=== PATIENT | male | born 1955 | race Hispanic/Latino ===

== ENCOUNTER 2017-09-16 14:00 | Outpatient (RCR) | payer BC | END 2017-09-21 | LOC: PT 14:00 | PROVIDERS: ATTEND Neurological Surgery | DX: S32.018D Other fracture of first lumbar vertebra, subsequent encounter for fracture with routine healing (principal); M62.81 Muscle weakness (generalized) ==

== ENCOUNTER 2017-10-20 10:00 | Outpatient (RCR) | payer BC | END 2017-10-22 | LOC: PT 10:00 | PROVIDERS: ATTEND Neurological Surgery | DX: S32.018D Other fracture of first lumbar vertebra, subsequent encounter for fracture with routine healing (principal) ==

== ENCOUNTER 2018-08-25 12:45 | Outpatient (RCR) | payer BC | END 2018-09-21 | LOC: PT 12:45 | PROVIDERS: ATTEND Neurological Surgery | DX: S32.018D Other fracture of first lumbar vertebra, subsequent encounter for fracture with routine healing (principal); M62.81 Muscle weakness (generalized); R26.2 Difficulty in walking, not elsewhere classified ==

== ENCOUNTER → 2019-05-17 | Outpatient (CLI) | payer BC ==
[~2019-05-17] MED LIST: IOPAMIDOL 370 MG/ML 200 ML INFUS..BTL INJ ONE; NITROGLYCERIN 0.4 MG SUBL ONE; SODIUM CHLORIDE 0.9% 100 ML ONE
[2019-05-17 08:21] LABS: BLOOD UREA NITROGEN 16 mg/dL (7-26); BUN/CREATININE RATIO 21 (6-25); CREATININE, SERUM 0.75 mg/dL (0.72-1.25); EST GLOMERULAR FILTRATION RATE > 60 ML/MIN (60-)
--- NOTE | 2019-05-18 13:24 | Diagnostic Imaging Report ---
EXAM: CORONARY CTA WITHOUT CALCIUM SCORE INDICATION: ^[id number] ^[id number] ^ANOMALOUS ORGIN OF CORONARY ARTERY COMPARISON: None. TECHNIQUE: Multi-detector CT technology was employed (64 MDCT [employer]). Minimal slice thickness was performed with retrospective gating following the intravenous administration of contrast material. The patient was premedicated with 0.4 mg sublingual nitroglycerin for coronary dilation. IV CONTRAST: 100 mL of Isovue-370 ORAL CONTRAST: None COMPLICATIONS: None RADIATION DOSE: Total DLP: 1409 mGy*cm Estimated effective dose: (DLP x 0.015 x size factor) mSv CTDIvol has been reviewed. It is below the limits set by the Radiation Protocol Committee (RPC). For optimization of anatomic evaluation, multiplanar reconstruction, maximum intensity projections, and advanced 3-D off-line postprocessing were performed on a dedicated stand-alone workstation under the direct supervision of the interpreting physician. 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 Left Main Coronary Artery: The left main is normal sized vessel that bifurcates into the LAD and circumflex. Minimal calcified plaque in the distal segment without significant stenosis. Left Anterior Descending Coronary Artery: The LAD is a normal size vessel that wraps around the apex. It gives rise to 2 acute diagonal branches. Few a scattered minimal calcified plaques throughout the LAD and diagonal branches, resulting in minimal narrowing (1-24%), without significant stenosis. Left Circumflex Coronary Artery: The LCX, which is dominant, is a normal size vessel, which arises from a common ostium from the right sinus of Valsalva, and then has a retroaortic course (benign coarse), and extends into the left AV groove to the above is small obtuse marginal and enlarged posterior descending artery. It gives rise to 1 obtuse marginal branches and a large posterior descending artery. Few scattered minimal calcified plaques throughout the LCx and acute marginal branch, resulting in minimal narrowing (1-24%), without significant stenosis. Right Coronary Artery: The RCA is a hypoplastic vessel with minimal luminal diameter of 2 mm, that arises from the right sinus of Valsalva in a common origin with the LCx. There is a complex calcified and noncalcified plaque in the proximal/mid segment, worse at the AV groove, resulting in severe stenosis (70-99%). It gives off a few small atrial and right ventricular branches. CARDIAC MORPHOLOGY AND FUNCTION: The right and left atria and ventricles are morphologically normal. LVEF: 75%, LV end diastolic volume: 109.5 cc LV end systolic volume: 27.3 cc LV stroke volume: 82.2 cc LIMITED CHEST: Limited views of the visualized chest show no abnormality within chest wall and mediastinum. No mediastinal lymphadenopathy. The visualized lungs are clear. The visualized portions of the ascending and descending thoracic aorta are of normal size. LIMITED ABDOMEN: Limited images of the upper abdomen reveal no abnormalities of the visualized organs. BONES: No acute osseous abnormalities. IMPRESSION: 1. 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 2. 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 3. Minimal calcified plaques throughout the LCx and LAD resulting in minimal narrowing (1-24%). CAD-NITA: 4A Reference: [email or web address] These findings were discussed with Dr. Akhtar on 05/18/2019 at 1:15 PM. Signed by: Dr. Arpita Wasserman M.D. on 05/18/2019 1:21 PM
== END ==
LOC: CT 07:25
PROVIDERS: ATTEND Internal Medicine Cardiovascular Disease
DX: Q24.5 Malformation of coronary vessels (principal)
CPT/HCPCS: 36415; 75574; 82565; 84520; J7050; Q9967